=== PATIENT | female | born 1955 | race African-American/Black ===

== ENCOUNTER 2017-11-17 07:54 | Emergency (ER) | payer MEDICAID ==
[~2017-11-17] VITALS: Ht 160 cm; Wt 49.0 kg
[~2017-11-17 07:54] MED LIST: INSULIN
[2017-11-17] MEDS ORDERED: KETOROLAC 30MG/ML VIAL IM ONE (08:30)
[2017-11-17] MEDS ORDERED: CYCLOBENZAPRINE 10MG TABLET PO ONE (08:30)
[2017-11-17 10:00] VITALS: BP 149/76
== END 2017-11-17 10:00 | disposition home or self-care (01) ==
LOC: ER 07:54
DX: S70.01XA Contusion of right hip, initial encounter (principal); E11.9 Type 2 diabetes mellitus without complications; I10 Essential (primary) hypertension; F17.200 Nicotine dependence, unspecified, uncomplicated; Z79.4 Long term (current) use of insulin; X58.XXXA Exposure to other specified factors, initial encounter; Y93.89 Activity, other specified; Y92.89 Other specified places as the place of occurrence of the external cause; Y99.8 Other external cause status
CPT/HCPCS: 73502; 96372; 99284; J1885

== ENCOUNTER 2020-10-09 14:12 | Inpatient (IN) | payer MEDICARE, MEDICAID ==
[~2020-10-09] VITALS: Ht 160 cm; Wt 46.3 kg
[2020-10-09 15:47] LABS: BASOPHILS % 0.5 % (0.0-2.0); EOSINOPHILS % 3.5 % (0.0-5.0); HEMATOCRIT. 31.8 % (36.0-48.0); HEMOGLOBIN. 10.9 g/dL (12.0-16.0); LYMPHOCYTES % 24.6 % (20.0-50.0); MEAN CORPUSCULAR HEMOGLOBIN 30.5 pg (28.0-32.0); MEAN CORPUSCULAR VOLUME 88.5 fL (81.0-99.0); MEAN PLATELET VOLUME 8.3 fl (7.4-10.4); MONOCYTES % 7.6 % (2.0-8.0); NEUTROPHILS % 63.8 % (40.0-76.0); PLATELET 326 x1000/uL (130-400); RED BLOOD CELL COUNT 3.59 mill/uL (4.2-5.4); RED CELL DISTRIBUTION WIDTH 13.4 % (11.6-14.6)
[2020-10-09 15:56] LABS: CHLORIDE 99 mEq/L (98-107)
[2020-10-09] MEDS ORDERED: DEXAMETHASONE 10 MG/ML VIAL IV NR (20:15)
[2020-10-09] MEDS ORDERED: IOHEXOL-300 100 ML BOTTLE ONE (22:40)
[2020-10-10] MEDS ORDERED: MORPHINE SULFATE 2 MG/ML CPJ (NOT FOR IM USE) IV PRN (08:45)
[2020-10-10] MEDS ORDERED: CLONIDINE 0.1MG TABLET PO PRN (08:45)
[2020-10-10] MEDS ORDERED: ACETAMINOPHEN 325MG TABLET PO PRN (08:45)
[2020-10-10] MEDS ORDERED: ONDANSETRON HCL 4MG/2ML INJ IV PRN (08:45)
[2020-10-10] MEDS ORDERED: DIPHENHYDRAMINE 50MG/ML VIAL IV PRN (08:45)
[2020-10-10 10:00] VITALS: BP 109/71
[2020-10-10] MEDS: NICOTINE 14MG PATCH TD SCH (11:35)
[2020-10-10 12:00] VITALS: BP 115/74
[2020-10-10] MEDS: SODIUM CHLORIDE 0.9% 1,000 ML IV SCH (13:01)
[2020-10-10] MEDS ORDERED: DEXTROSE 50% WATER 50ML SYRINGE IV PRN (13:45)
[2020-10-10 16:00] VITALS: BP 128/78
[2020-10-10] MEDS: BLOOD SUGAR DIAGNOSTIC STRIP TEST SCH ×2 (17:20→20:49)
[2020-10-10] MEDS: INSULIN LISPRO 100 UNITS/ML SUBCUT SCH ×2 (17:50→20:49)
[2020-10-10 20:00] VITALS: BP 110/74
[2020-10-11] VITALS: BP_SYST 100; BP_SYST 102; BP_DIAS 53; BP_DIAS 63
[2020-10-11 03:48] VITALS: BP 116/66
[2020-10-11] MEDS: SODIUM CHLORIDE 0.9% 1,000 ML IV SCH (05:03)
[2020-10-11] MEDS: INSULIN LISPRO 100 UNITS/ML SUBCUT SCH (05:54)
[2020-10-11] MEDS: BLOOD SUGAR DIAGNOSTIC STRIP TEST SCH (05:54)
[2020-10-11 08:00] VITALS: BP 136/98
[2020-10-11] MEDS: NICOTINE 14MG PATCH TD SCH (08:01)
[2020-10-11] MEDS ORDERED: DEXAMETHASONE 10 MG/ML VIAL IV SCH (10:00)
== END 2020-10-11 09:45 | disposition left against medical advice (07) | DRG 115 ==
LOC: ER 14:12 → MICUSO 19:54 → EDBEDREQTM 20:21 → EDBEDREQSVC 20:21 → 6WST 10-10 07:15
PROVIDERS: ADMIT Internal Medicine; ATTEND Internal Medicine
DX: J39.2 Other diseases of pharynx (principal); E11.9 Type 2 diabetes mellitus without complications; I10 Essential (primary) hypertension; Z53.29 Procedure and treatment not carried out because of patient's decision for other reasons; R13.10 Dysphagia, unspecified; I96 Gangrene, not elsewhere classified; J39.8 Other specified diseases of upper respiratory tract; F10.21 Alcohol dependence, in remission; F17.210 Nicotine dependence, cigarettes, uncomplicated; R63.0 Anorexia; Z68.1 Body mass index [BMI] 19.9 or less, adult; Z20.822 Contact with and (suspected) exposure to COVID-19
CPT/HCPCS: 36415; 70490; 70491; 71045; 80048; 80076; 82962; 83036; 85025; 93005; 93970; 99285; J1100; J7030; Q9967; U0003